=== PATIENT | female | born 1945 | race Caucasian/White ===

== ENCOUNTER 2017-07-29 13:24 | Inpatient (IN) | payer OTHER ==
[~2017-07-29] VITALS: Ht 162.6 cm; Wt 126.0 kg
[2017-07-29 15:36] LABS: BASOPHIL (%) 0.3 % (0-1); EOSINOPHIL (%) 0.8 % (0-5); EOSINOPHIL COUNT 0.1 K/uL (0-0.3); HEMATOCRIT 33.6 % (36.0-46.0); HEMOGLOBIN 11.6 G/DL (11.9-15.5); IMMATURE GRANULOCYTE (%) 0.5 % (0.0-0.7); LYMPHOCYTE (%) 5.1 % (15-42); LYMPHOCYTE COUNT 0.7 K/uL (1.0-2.8); MCH 34.3 PG (29.0-34.0); MCHC 34.5 G/DL (30.0-36.0); MCV 99.4 FL (83-99); MONOCYTE (%) 10.4 % (3-12); MONOCYTE COUNT 1.4 K/uL (0-0.8); NEUTROPHIL (%) 82.9 % (45-76); NEUTROPHIL COUNT 11.2 K/uL (1.8-6.4); PLATELET COUNT 339 K/uL (156-360); RBC DIS.WIDTH-CV 13.7 % (11.8-14.6); RED BLOOD COUNT 3.38 M/uL (3.80-5.20); WHITE BLOOD COUNT 13.6 K/uL (4.1-10.2)
[2017-07-29 15:46] LABS: CHLORIDE 106 mEq/L (99-109); POTASSIUM 4.4 mEq/L (3.7-5.4); SODIUM 139 mEq/L (136-147)
[2017-07-29 15:47] LABS: GLUCOSE 154 mg/dL (70-99)
[2017-07-29 15:50] LABS: ERTH.SED.RATE 58 MM/HR (0-30)
[2017-07-29 15:51] LABS: CREATININE 1.2 mg/dL (0.6-1.3); GFR ESTIMATE (CALCULATED) 47 mL/min/
[2017-07-29 15:52] LABS: UREA NITROGEN (BUN) 36 mg/dL (9-23)
[2017-07-29] MEDS ORDERED: CLEOCIN300 MG PO (17:36)
[2017-07-29 18:03] LABS: C-REACTIVE PROTEIN 188.3 MG/L (0-10)
[2017-07-29] MEDS ORDERED: ATENOLOL50 MG PO (19:00)
[2017-07-29] MEDS ORDERED: DICLOFENAC SODI50 MG PO (19:01)
[2017-07-29] MEDS ORDERED: LISINOPRIL20 MG PO (19:01)
[2017-07-29] MEDS ORDERED: METFORMIN HCL500 MG PO (19:02)
[2017-07-29] MEDS ORDERED: LOVASTATIN20 MG PO (19:02)
[2017-07-29] MEDS ORDERED: ATENOLOL100 MG PO (19:02)
[2017-07-29] MEDS ORDERED: CALCIUM 600 +1 EAC1 PO (19:05)
[2017-07-29] MEDS ORDERED: LASIX40 MG PO (19:07)
[2017-07-29 21:08] LABS: BASE EXCESS 0.5 mEq/L (-3 to +3); BICARBONATE 24.5 mEq/L (22-26); CARBOXY HGB 1.7 % (0-5); METHEMOGLOBIN 0.9 % (0-1.5); PCO2 36 mm Hg (35-45); PO2 79 mm Hg (80-100); pH 7.44 (7.35-7.45)
[2017-07-29 21:09] LABS: COMMENTS - BLOOD GASES A+C+; FI02 21 %; SITE RR
[2017-07-29 21:58] VITALS: BP 124/59
[2017-07-30 06:13] LABS: BASOPHIL (%) 0.6 % (0-1); BASOPHIL COUNT 0.1 K/uL (0-0.1); EOSINOPHIL (%) 4.1 % (0-5); EOSINOPHIL COUNT 0.3 K/uL (0-0.3); HEMATOCRIT 31.3 % (36.0-46.0); HEMOGLOBIN 10.2 G/DL (11.9-15.5); IMMATURE GRANULOCYTE (%) 0.6 % (0.0-0.7); LYMPHOCYTE (%) 14.8 % (15-42); LYMPHOCYTE COUNT 1.2 K/uL (1.0-2.8); MCHC 32.6 G/DL (30.0-36.0); MCV 101.3 FL (83-99); MONOCYTE (%) 11.6 % (3-12); NEUTROPHIL (%) 68.3 % (45-76); NEUTROPHIL COUNT 5.7 K/uL (1.8-6.4); PLATELET COUNT 282 K/uL (156-360); RBC DIS.WIDTH-CV 13.7 % (11.8-14.6); RBC DIS.WIDTH-SD 51.4 % (39-53); RED BLOOD COUNT 3.09 M/uL (3.80-5.20); WHITE BLOOD COUNT 8.4 K/uL (4.1-10.2)
[2017-07-30 06:34] LABS: CHLORIDE 108 MEQ/L (99-109); GFR ESTIMATE (CALCULATED) 58 mL/min/; POTASSIUM 4.3 MEQ/L (3.7-5.4); SODIUM 142 MEQ/L (136-147); UREA NITROGEN (BUN) 30 mg/dL (9-23)
[2017-07-30 06:47] LABS: GLUCOSE 94 mg/dL (70-99)
[2017-07-30 07:21] VITALS: BP 130/63
[2017-07-31] VITALS: BP 138/63
[2017-07-31 06:10] LABS: HEMATOCRIT 27.6 % (36.0-46.0); HEMOGLOBIN 9.2 G/DL (11.9-15.5); MCHC 33.3 G/DL (30.0-36.0); MCV 98.9 FL (83-99); PLATELET COUNT 288 K/uL (156-360); RBC DIS.WIDTH-CV 13.4 % (11.8-14.6); RBC DIS.WIDTH-SD 49.1 % (39-53); RED BLOOD COUNT 2.79 M/uL (3.80-5.20)
[2017-07-31 06:34] LABS: CHLORIDE 109 MEQ/L (99-109); CREATININE 1.2 MG/DL (0.6-1.3); GFR ESTIMATE (CALCULATED) 47 mL/min/; GLUCOSE 107 mg/dL (70-99); POTASSIUM 4.4 MEQ/L (3.7-5.4); SODIUM 141 MEQ/L (136-147); UREA NITROGEN (BUN) 30 mg/dL (9-23)
[2017-07-31 07:06] VITALS: BP 118/62
[2017-07-31 15:00] VITALS: BP 130/59
[2017-08-01] VITALS: BP 118/56
[2017-08-01 06:05] LABS: BASOPHIL COUNT 0.1 K/uL (0-0.1); EOSINOPHIL (%) 6.7 % (0-5); EOSINOPHIL COUNT 0.4 K/uL (0-0.3); HEMATOCRIT 28.8 % (36.0-46.0); HEMOGLOBIN 9.8 G/DL (11.9-15.5); IMMATURE GRANULOCYTE (%) 1.1 % (0.0-0.7); LYMPHOCYTE (%) 18.1 % (15-42); LYMPHOCYTE COUNT 1.1 K/uL (1.0-2.8); MCH 34.1 PG (29.0-34.0); MCV 100.3 FL (83-99); MONOCYTE (%) 10.5 % (3-12); MONOCYTE COUNT 0.7 K/uL (0-0.8); NEUTROPHIL (%) 62.6 % (45-76); NEUTROPHIL COUNT 3.9 K/uL (1.8-6.4); PLATELET COUNT 286 K/uL (156-360); RBC DIS.WIDTH-CV 13.6 % (11.8-14.6); RBC DIS.WIDTH-SD 50.6 % (39-53); RED BLOOD COUNT 2.87 M/uL (3.80-5.20); WHITE BLOOD COUNT 6.3 K/uL (4.1-10.2)
[2017-08-01 06:45] LABS: ALBUMIN 2.4 G/DL (3.2-4.8); ALKALINE PHOSPHATASE 120 IU/L (3-129); ALT (GPT) 18 IU/L (3-49); AST (GOT) 21 IU/L (2-34); CHLORIDE 109 MEQ/L (99-109); CREATININE 1.3 MG/DL (0.6-1.3); GFR ESTIMATE (CALCULATED) 43 mL/min/; GLUCOSE 113 mg/dL (70-99); POTASSIUM 4.2 MEQ/L (3.7-5.4); SODIUM 140 MEQ/L (136-147); TOTAL BILIRUBIN 0.5 MG/DL (0.0-1.0); TOTAL PROTEIN 4.9 G/DL (6.4-8.3); UREA NITROGEN (BUN) 30 mg/dL (9-23)
[2017-08-01 08:14] VITALS: BP 132/63
[2017-08-01 16:55] VITALS: BP 140/78
[2017-08-01 23:02] VITALS: BP 125/61
[2017-08-02 06:40] LABS: BASOPHIL (%) 0.9 % (0-1); BASOPHIL COUNT 0.1 K/uL (0-0.1); EOSINOPHIL (%) 7.6 % (0-5); EOSINOPHIL COUNT 0.5 K/uL (0-0.3); IMM.RETIC FRACTION 21.5 % (3-19); IMMATURE GRANULOCYTE (%) 1.8 % (0.0-0.7); LYMPHOCYTE (%) 17.7 % (15-42); LYMPHOCYTE COUNT 1.2 K/uL (1.0-2.8); MCH 33.1 PG (29.0-34.0); MCHC 33.3 G/DL (30.0-36.0); MCV 99.3 FL (83-99); MONOCYTE (%) 8.9 % (3-12); MONOCYTE COUNT 0.6 K/uL (0-0.8); NEUTROPHIL (%) 63.1 % (45-76); NEUTROPHIL COUNT 4.2 K/uL (1.8-6.4); PLATELET COUNT 296 K/uL (156-360); RBC DIS.WIDTH-CV 13.3 % (11.8-14.6); RBC DIS.WIDTH-SD 48.4 % (39-53); RED BLOOD COUNT 3.02 M/uL (3.80-5.20); RETIC HGB EQUIVALENT 35.1 (28-36); RETICULOCYTE COUNT 2.4 % (0.5-1.8); WHITE BLOOD COUNT 6.7 K/uL (4.1-10.2)
[2017-08-02 06:59] LABS: CHLORIDE 109 MEQ/L (99-109); GFR ESTIMATE (CALCULATED) 58 mL/min/; GLUCOSE 118 mg/dL (70-99); IRON 57 MCG/DL (35-150); POTASSIUM 4.3 MEQ/L (3.7-5.4); SODIUM 141 MEQ/L (136-147); TRANSFERRIN (TIBC) 155.6 mg/dL (215-380); TRANSFERRIN SATUR. 37 % (20-55); UREA NITROGEN (BUN) 26 mg/dL (9-23)
[2017-08-02 07:03] VITALS: BP 137/63
[2017-08-02 08:08] LABS: FERRITIN 393 NG/ML (10-291)
[2017-08-02 08:13] LABS: FOLIC ACID (FOLATE) 8.4 NG/ML (5.0-22.0)
[2017-08-02 11:13] VITALS: BP 128/62
[2017-08-02 15:00] VITALS: BP 138/58
[2017-08-02 23:51] VITALS: BP 111/65
[2017-08-03 07:45] VITALS: BP 146/69
[2017-08-03 11:13] VITALS: BP 133/67
[2017-08-03] MEDS ORDERED: ANCEF,KEFZOL1 GM IV (13:18)
[2017-08-03] MEDS ORDERED: POVIDONE-IODINE30 GM TP (13:20)
[2017-08-03] MEDS ORDERED: SANTYL30 GM TP (13:21)
[2017-08-03] MEDS ORDERED: DESENEX85 GM TP (13:21)
== END 2017-08-03 15:53 | DRG 540 ==
LOC: EME 13:24 → EDOF 20:02 → ENRESERV 20:03 → 5EAST 21:38
PROVIDERS: Emergency Medicine; Hospitalist; Internal Medicine
DX: M86.9 Osteomyelitis, unspecified (principal); L03.116 Cellulitis of left lower limb; L03.115 Cellulitis of right lower limb; Z68.42 Body mass index [BMI] 45.0-49.9, adult; L89.610 Pressure ulcer of right heel, unstageable; L89.620 Pressure ulcer of left heel, unstageable; I89.0 Lymphedema, not elsewhere classified; M85.872 Other specified disorders of bone density and structure, left ankle and foot; E66.01 Morbid (severe) obesity due to excess calories; E11.51 Type 2 diabetes mellitus with diabetic peripheral angiopathy without gangrene; E11.42 Type 2 diabetes mellitus with diabetic polyneuropathy; S92.345A Nondisplaced fracture of fourth metatarsal bone, left foot, initial encounter for closed fracture; S92.355A Nondisplaced fracture of fifth metatarsal bone, left foot, initial encounter for closed fracture; W18.30XA Fall on same level, unspecified, initial encounter; I10 Essential (primary) hypertension; D64.9 Anemia, unspecified; R60.9 Edema, unspecified; Z60.2 Problems related to living alone; B95.1 Streptococcus, group B, as the cause of diseases classified elsewhere; B95.61 Methicillin susceptible Staphylococcus aureus infection as the cause of diseases classified elsewhere; Z88.2 Allergy status to sulfonamides; Z79.84 Long term (current) use of oral hypoglycemic drugs; Y92.009 Unspecified place in unspecified non-institutional (private) residence as the place of occurrence of the external cause; Z86.718 Personal history of other venous thrombosis and embolism; Z17.0 Estrogen receptor positive status [ER+]; Z85.3 Personal history of malignant neoplasm of breast; Z91.81 History of falling; Z90.49 Acquired absence of other specified parts of digestive tract; Z82.49 Family history of ischemic heart disease and other diseases of the circulatory system; Z82.0 Family history of epilepsy and other diseases of the nervous system
CPT/HCPCS: 36600; 73502; 73630; 73720; 76937; 80048; 80053; 80202; 82607; 82728; 82746; 82803; 82948; 83540; 84466; 85025; 85027; 85046; 85652; 86140; 87070; 87075; 87077; 87147; 87186; 87205; 87641; 93925; 93970; 97530 GP; 99281; 99284; A6260; G0378; J0690; J1650; J1815; J2543; J3370; J7050

== ENCOUNTER 2017-09-23 10:35 | Inpatient (IN) | payer OTHER ==
[~2017-09-23] VITALS: Ht 165.1 cm; Wt 126.0 kg
[~2017-09-23 10:35] MED LIST: ANCEF,KEFZOL1 GM IV; ATENOLOL100 MG PO; ATENOLOL50 MG PO; CALCIUM 600 +1 EAC1 PO; CLEOCIN300 MG PO; DESENEX85 GM TP; DICLOFENAC SODI50 MG PO; LASIX40 MG PO; LISINOPRIL20 MG PO; LOVASTATIN20 MG PO; METFORMIN HCL500 MG PO; POVIDONE-IODINE30 GM TP; SANTYL30 GM TP
[2017-09-23 11:43] LABS: BASOPHIL (%) 0.3 % (0-1); EOSINOPHIL (%) 0.4 % (0-5); EOSINOPHIL COUNT 0.1 K/uL (0-0.3); HEMATOCRIT 37.9 % (36.0-46.0); HEMOGLOBIN 12.3 G/DL (11.9-15.5); IMMATURE GRANULOCYTE (%) 1.2 % (0.0-0.7); LYMPHOCYTE (%) 9.6 % (15-42); LYMPHOCYTE COUNT 1.3 K/uL (1.0-2.8); MCH 33.9 PG (29.0-34.0); MCHC 32.5 G/DL (30.0-36.0); MCV 104.4 FL (83-99); MONOCYTE COUNT 0.8 K/uL (0-0.8); NEUTROPHIL (%) 82.5 % (45-76); NEUTROPHIL COUNT 11.4 K/uL (1.8-6.4); RBC DIS.WIDTH-CV 13.2 % (11.8-14.6); RBC DIS.WIDTH-SD 50.4 % (39-53); RED BLOOD COUNT 3.63 M/uL (3.80-5.20); WHITE BLOOD COUNT 13.8 K/uL (4.1-10.2)
[2017-09-23 11:54] LABS: CHLORIDE 102 mEq/L (99-109); SODIUM 135 mEq/L (136-147)
[2017-09-23 11:56] LABS: GLUCOSE 210 mg/dL (70-99)
[2017-09-23 11:59] LABS: CREATININE 2.9 mg/dL (0.6-1.3); GFR ESTIMATE (CALCULATED) 17 mL/min/
[2017-09-23 12:00] LABS: POTASSIUM 6.8 mEq/L (3.7-5.4); UREA NITROGEN (BUN) 55 mg/dL (9-23)
[2017-09-23 12:18] LABS: PLATELET COUNT 159 K/uL (156-360)
[2017-09-23 14:05] LABS: POTASSIUM 5.2 mEq/L (3.7-5.4)
[2017-09-23 15:23] LABS: BASE EXCESS -6.8 mEq/L (-3 to +3); BICARBONATE 16.7 mEq/L (22-26); CARBOXY HGB 7.2 % (0-5); COMMENTS - BLOOD GASES +C; FI02 21 %; METHEMOGLOBIN 1.6 % (0-1.5); PCO2 27 mm Hg (35-45); PO2 108 mm Hg (80-100); SITE RR +A
[2017-09-23 15:24] LABS: TOTAL RESP RATE 32 resp/min
[2017-09-23 15:56] LABS: ALBUMIN 3.9 g/dL (3.2-4.8); CHLORIDE 105 mEq/L (99-109); POTASSIUM 4.8 mEq/L (3.7-5.4); SODIUM 139 mEq/L (136-147)
[2017-09-23 15:59] LABS: GLUCOSE 165 mg/dL (70-99); TOTAL PROTEIN 6.8 g/dL (6.4-8.3)
[2017-09-23 16:01] LABS: TOTAL BILIRUBIN 0.7 mg/dL (0.0-1.0)
[2017-09-23 16:02] LABS: ALKALINE PHOSPHATASE 133 IU/L (3-129); CREATININE 2.7 mg/dL (0.6-1.3); GFR ESTIMATE (CALCULATED) 19 mL/min/
[2017-09-23 16:03] LABS: UREA NITROGEN (BUN) 56 mg/dL (9-23)
[2017-09-23 16:04] LABS: AST (GOT) 21 IU/L (2-34)
[2017-09-23 16:05] LABS: ALT (GPT) 11 IU/L (3-49)
[2017-09-23 16:11] LABS: TROP-I INTERPRETATION NEGATIVE; TROPONIN-I < 0.01 ng/mL (0.0-0.30)
[2017-09-23 18:01] VITALS: BP 83/53
[2017-09-23 20:13] VITALS: BP 104/59
[2017-09-23 22:41] LABS: INTER. NORMALIZED RATIO 1.3
[2017-09-23 22:43] LABS: PTT 25.8 SEC (25-37)
[2017-09-23 23:20] VITALS: BP 112/56
[2017-09-24 03:47] VITALS: BP 96/52
[2017-09-24 05:34] LABS: CHLORIDE 102 MEQ/L (99-109); POTASSIUM 5.2 MEQ/L (3.7-5.4); SODIUM 135 MEQ/L (136-147)
[2017-09-24 05:39] LABS: CREATININE 3.1 MG/DL (0.6-1.3); GFR ESTIMATE (CALCULATED) 16 mL/min/; GLUCOSE 178 mg/dL (70-99); UREA NITROGEN (BUN) 62 mg/dL (9-23)
[2017-09-24 07:07] LABS: HEMATOCRIT 40.1 % (36.0-46.0); MCH 33.4 PG (29.0-34.0); MCHC 32.4 G/DL (30.0-36.0); MCV 103.1 FL (83-99); PLATELET COUNT 161 K/uL (156-360); RBC DIS.WIDTH-CV 13.2 % (11.8-14.6); RBC DIS.WIDTH-SD 50.6 % (39-53); RED BLOOD COUNT 3.89 M/uL (3.80-5.20); WHITE BLOOD COUNT 16.5 K/uL (4.1-10.2)
[2017-09-24 07:47] VITALS: BP 103/55
[2017-09-24 08:56] LABS: BASE EXCESS -4.7 mEq/L (-3 to +3); BICARBONATE 18.3 mEq/L (22-26); COMMENTS - BLOOD GASES A+C+; DEVICE RA; METHEMOGLOBIN 1.4 % (0-1.5); PCO2 27 mm Hg (35-45); PO2 109 mm Hg (80-100); SITE RR; TOTAL RESP RATE 15 resp/min; pH 7.44 (7.35-7.45)
[2017-09-24 10:20] LABS: HEMOGLOBIN A1c (GLYCOHEMOGLOB) 6.2 % (Below 5.7)
[2017-09-24 12:30] VITALS: BP 85/51
[2017-09-24 14:19] LABS: CHLORIDE 106 MEQ/L (99-109); CREATININE 3.2 MG/DL (0.6-1.3); GFR ESTIMATE (CALCULATED) 15 mL/min/; GLUCOSE 147 mg/dL (70-99); POTASSIUM 5.4 MEQ/L (3.7-5.4); SODIUM 137 MEQ/L (136-147); UREA NITROGEN (BUN) 66 mg/dL (9-23)
[2017-09-24 16:00] VITALS: BP 114/53
[2017-09-24 19:59] LABS: CHLORIDE 107 MEQ/L (99-109); POTASSIUM 4.6 MEQ/L (3.7-5.4); SODIUM 137 MEQ/L (136-147)
[2017-09-24 20:05] LABS: CREATININE 3.1 MG/DL (0.6-1.3); GFR ESTIMATE (CALCULATED) 16 mL/min/; GLUCOSE 143 mg/dL (70-99); UREA NITROGEN (BUN) 68 mg/dL (9-23)
[2017-09-24 20:55] VITALS: BP 97/55
[2017-09-24 23:28] VITALS: BP 96/54
[2017-09-25 03:57] VITALS: BP 100/51
[2017-09-25 05:41] LABS: BASOPHIL (%) 0.6 % (0-1); BASOPHIL COUNT 0.1 K/uL (0-0.1); EOSINOPHIL (%) 2.1 % (0-5); EOSINOPHIL COUNT 0.3 K/uL (0-0.3); HEMOGLOBIN 9.4 G/DL (11.9-15.5); IMMATURE GRANULOCYTE (%) 0.6 % (0.0-0.7); LYMPHOCYTE (%) 11.2 % (15-42); LYMPHOCYTE COUNT 1.7 K/uL (1.0-2.8); MCH 33.5 PG (29.0-34.0); MCHC 32.4 G/DL (30.0-36.0); MCV 103.2 FL (83-99); MONOCYTE (%) 7.6 % (3-12); MONOCYTE COUNT 1.1 K/uL (0-0.8); NEUTROPHIL (%) 77.9 % (45-76); NEUTROPHIL COUNT 11.4 K/uL (1.8-6.4); PLATELET COUNT 139 K/uL (156-360); RBC DIS.WIDTH-CV 13.3 % (11.8-14.6); RBC DIS.WIDTH-SD 50.7 % (39-53); RED BLOOD COUNT 2.81 M/uL (3.80-5.20); WHITE BLOOD COUNT 14.7 K/uL (4.1-10.2)
[2017-09-25 06:06] LABS: CHLORIDE 109 MEQ/L (99-109); CREATININE 3.4 MG/DL (0.6-1.3); GFR ESTIMATE (CALCULATED) 14 mL/min/; GLUCOSE 109 mg/dL (70-99); MAGNESIUM 1.5 mg/dl (1.3-2.7); PHOSPHORUS 3.5 mg/dL (2.5-4.9); POTASSIUM 4.1 MEQ/L (3.7-5.4); SODIUM 140 MEQ/L (136-147); UREA NITROGEN (BUN) 78 mg/dL (9-23)
[2017-09-25 09:00] VITALS: BP 86/42; BP 96/47
[2017-09-25 11:57] VITALS: BP 94/44
[2017-09-25 15:24] LABS: HEMATOCRIT 29.5 % (36.0-46.0); HEMOGLOBIN 9.5 G/DL (11.9-15.5); MCHC 32.2 G/DL (30.0-36.0); MCV 102.4 FL (83-99); PLATELET COUNT 172 K/uL (156-360); RBC DIS.WIDTH-CV 13.2 % (11.8-14.6); RBC DIS.WIDTH-SD 49.9 % (39-53); RED BLOOD COUNT 2.88 M/uL (3.80-5.20); WHITE BLOOD COUNT 14.5 K/uL (4.1-10.2)
[2017-09-25 17:38] VITALS: BP 82/37
[2017-09-25 17:43] LABS: STOOL OCCULT BLD 1ST SPECIMEN POSITIVE
[2017-09-25 18:00] LABS: CHLORIDE 109 MEQ/L (99-109); CREATININE 2.6 MG/DL (0.6-1.3); GFR ESTIMATE (CALCULATED) 19 mL/min/; GLUCOSE 139 mg/dL (70-99); POTASSIUM 4.1 MEQ/L (3.7-5.4); SODIUM 140 MEQ/L (136-147); UREA NITROGEN (BUN) 67 mg/dL (9-23)
[2017-09-25 18:55] LABS: HEMATOCRIT 30.4 % (36.0-46.0); HEMOGLOBIN 9.9 G/DL (11.9-15.5); MCH 33.4 PG (29.0-34.0); MCHC 32.6 G/DL (30.0-36.0); MCV 102.7 FL (83-99); PLATELET COUNT 186 K/uL (156-360); RBC DIS.WIDTH-CV 13.2 % (11.8-14.6); RBC DIS.WIDTH-SD 49.5 % (39-53); RED BLOOD COUNT 2.96 M/uL (3.80-5.20); WHITE BLOOD COUNT 14.5 K/uL (4.1-10.2)
[2017-09-25 19:30] VITALS: BP 98/53
[2017-09-25 20:33] LABS: STOOL OCCULT BLD 1ST SPECIMEN POSITIVE
[2017-09-25 23:14] VITALS: BP 82/46
[2017-09-26 03:00] VITALS: BP 89/51
[2017-09-26 05:09] LABS: BASOPHIL (%) 0.6 % (0-1); BASOPHIL COUNT 0.1 K/uL (0-0.1); EOSINOPHIL (%) 3.6 % (0-5); EOSINOPHIL COUNT 0.4 K/uL (0-0.3); HEMOGLOBIN 8.9 G/DL (11.9-15.5); IMMATURE GRANULOCYTE (%) 0.7 % (0.0-0.7); LYMPHOCYTE (%) 14.7 % (15-42); LYMPHOCYTE COUNT 1.6 K/uL (1.0-2.8); MCH 33.3 PG (29.0-34.0); MCV 101.1 FL (83-99); MONOCYTE (%) 6.8 % (3-12); MONOCYTE COUNT 0.7 K/uL (0-0.8); NEUTROPHIL (%) 73.6 % (45-76); PLATELET COUNT 139 K/uL (156-360); RBC DIS.WIDTH-CV 13.2 % (11.8-14.6); RBC DIS.WIDTH-SD 49.1 % (39-53); RED BLOOD COUNT 2.67 M/uL (3.80-5.20); WHITE BLOOD COUNT 10.9 K/uL (4.1-10.2)
[2017-09-26 05:33] LABS: CHLORIDE 109 MEQ/L (99-109); CREATININE 2.4 MG/DL (0.6-1.3); GFR ESTIMATE (CALCULATED) 21 mL/min/; GLUCOSE 114 mg/dL (70-99); POTASSIUM 4.2 MEQ/L (3.7-5.4); SODIUM 138 MEQ/L (136-147); UREA NITROGEN (BUN) 61 mg/dL (9-23)
[2017-09-26 09:00] VITALS: BP 101/49
[2017-09-26 11:45] VITALS: BP 98/53
[2017-09-26 16:16] VITALS: BP 93/55
[2017-09-26 19:30] VITALS: BP 96/54
[2017-09-26 23:58] VITALS: BP 93/50
[2017-09-27] VITALS (7 sets, daily range): BP systolic 93–128; BP diastolic 53–63
[2017-09-27 05:37] LABS: BASOPHIL (%) 0.5 % (0-1); BASOPHIL COUNT 0.1 K/uL (0-0.1); EOSINOPHIL (%) 4.6 % (0-5); EOSINOPHIL COUNT 0.4 K/uL (0-0.3); HEMATOCRIT 25.5 % (36.0-46.0); HEMOGLOBIN 8.6 G/DL (11.9-15.5); IMMATURE GRANULOCYTE (%) 0.9 % (0.0-0.7); LYMPHOCYTE (%) 16.2 % (15-42); LYMPHOCYTE COUNT 1.5 K/uL (1.0-2.8); MCH 33.9 PG (29.0-34.0); MCHC 33.7 G/DL (30.0-36.0); MCV 100.4 FL (83-99); MONOCYTE COUNT 0.7 K/uL (0-0.8); NEUTROPHIL (%) 69.8 % (45-76); NEUTROPHIL COUNT 6.4 K/uL (1.8-6.4); PLATELET COUNT 116 K/uL (156-360); RBC DIS.WIDTH-CV 13.2 % (11.8-14.6); RED BLOOD COUNT 2.54 M/uL (3.80-5.20); WHITE BLOOD COUNT 9.2 K/uL (4.1-10.2)
[2017-09-27 05:48] LABS: CHLORIDE 108 MEQ/L (99-109); GFR ESTIMATE (CALCULATED) 32 mL/min/; GLUCOSE 127 mg/dL (70-99); IRON 43 MCG/DL (35-150); MAGNESIUM 1.4 mg/dl (1.3-2.7); PHOSPHORUS 2.4 mg/dL (2.5-4.9); SODIUM 139 MEQ/L (136-147); UREA NITROGEN (BUN) 48 mg/dL (9-23)
[2017-09-27 05:51] LABS: CREATININE 1.7 MG/DL (0.6-1.3)
[2017-09-28 03:40] VITALS: BP 121/62
[2017-09-28 05:48] LABS: BASOPHIL (%) 0.3 % (0-1); EOSINOPHIL (%) 4.7 % (0-5); EOSINOPHIL COUNT 0.4 K/uL (0-0.3); HEMATOCRIT 25.6 % (36.0-46.0); HEMOGLOBIN 8.6 G/DL (11.9-15.5); IMMATURE GRANULOCYTE (%) 0.9 % (0.0-0.7); LYMPHOCYTE (%) 14.6 % (15-42); LYMPHOCYTE COUNT 1.3 K/uL (1.0-2.8); MCH 33.6 PG (29.0-34.0); MCHC 33.6 G/DL (30.0-36.0); MONOCYTE (%) 8.6 % (3-12); MONOCYTE COUNT 0.8 K/uL (0-0.8); NEUTROPHIL (%) 70.9 % (45-76); NEUTROPHIL COUNT 6.2 K/uL (1.8-6.4); PLATELET COUNT 120 K/uL (156-360); RBC DIS.WIDTH-CV 13.2 % (11.8-14.6); RBC DIS.WIDTH-SD 47.6 % (39-53); RED BLOOD COUNT 2.56 M/uL (3.80-5.20); WHITE BLOOD COUNT 8.7 K/uL (4.1-10.2)
[2017-09-28 06:20] LABS: CHLORIDE 108 MEQ/L (99-109); CREATININE 1.4 MG/DL (0.6-1.3); GFR ESTIMATE (CALCULATED) 40 mL/min/; GLUCOSE 123 mg/dL (70-99); POTASSIUM 3.8 MEQ/L (3.7-5.4); SODIUM 139 MEQ/L (136-147); UREA NITROGEN (BUN) 40 mg/dL (9-23)
[2017-09-28 07:43] VITALS: BP 106/55
[2017-09-28 11:23] VITALS: BP 114/74
[2017-09-28 16:13] VITALS: BP 105/57
[2017-09-28 19:42] VITALS: BP 103/56
[2017-09-28 23:29] VITALS: BP 111/60
[2017-09-29 00:28] VITALS: BP 120/65; BP 121/74
[2017-09-29 03:47] VITALS: BP 116/60
[2017-09-29 06:06] LABS: HEMATOCRIT 24.4 % (36.0-46.0); MCH 32.9 PG (29.0-34.0); MCHC 32.8 G/DL (30.0-36.0); MCV 100.4 FL (83-99); PLATELET COUNT 141 K/uL (156-360); RBC DIS.WIDTH-CV 13.3 % (11.8-14.6); RBC DIS.WIDTH-SD 48.7 % (39-53); RED BLOOD COUNT 2.43 M/uL (3.80-5.20); WHITE BLOOD COUNT 8.9 K/uL (4.1-10.2)
[2017-09-29 06:26] LABS: CHLORIDE 109 MEQ/L (99-109); CREATININE 1.2 MG/DL (0.6-1.3); GFR ESTIMATE (CALCULATED) 47 mL/min/; GLUCOSE 123 mg/dL (70-99); POTASSIUM 3.8 MEQ/L (3.7-5.4); SODIUM 139 MEQ/L (136-147); UREA NITROGEN (BUN) 34 mg/dL (9-23)
[2017-09-29 07:38] VITALS: BP 118/54
[2017-09-29 10:03] LABS: STOOL OCCULT BLD 1ST SPECIMEN POSITIVE
[2017-09-29] MEDS ORDERED: ANTIVERT12.5 MG PO (10:13)
[2017-09-29] MEDS ORDERED: PANTOPRAZOLE SO40 MG PO (10:14)
[2017-09-29 10:40] VITALS: BP 126/60
== END 2017-09-29 15:16 | DRG 683 ==
LOC: EME 10:35 → 4EAST 14:16 → EDOF 14:16 → ENRESERV 14:25 → 4EAST 17:36 → ENRESERV 09-27 10:31 → 2EASTP 09-27 13:55 → ENRESERV 09-27 15:25 → 2EAST 09-27 18:25 → ENPENDDIS 09-29 14:40 → 2EAST 09-29 15:16
PROVIDERS: Emergency Medicine; Internal Medicine; Internal Medicine Nephrology; Thoracic Surgery (Cardiothoracic Vascular Surgery)
DX: N17.0 Acute kidney failure with tubular necrosis (principal); K52.9 Noninfective gastroenteritis and colitis, unspecified; E86.0 Dehydration; E87.2 Acidosis; E66.01 Morbid (severe) obesity due to excess calories; I82.522 Chronic embolism and thrombosis of left iliac vein; I82.532 Chronic embolism and thrombosis of left popliteal vein; E87.5 Hyperkalemia; I10 Essential (primary) hypertension; E11.9 Type 2 diabetes mellitus without complications; R29.6 Repeated falls; R33.9 Retention of urine, unspecified; Z68.41 Body mass index [BMI] 40.0-44.9, adult; I89.0 Lymphedema, not elsewhere classified; D64.9 Anemia, unspecified; I95.9 Hypotension, unspecified; E87.1 Hypo-osmolality and hyponatremia; L97.429 Non-pressure chronic ulcer of left heel and midfoot with unspecified severity; I87.2 Venous insufficiency (chronic) (peripheral); K29.70 Gastritis, unspecified, without bleeding; Z79.84 Long term (current) use of oral hypoglycemic drugs; Z85.3 Personal history of malignant neoplasm of breast
CPT/HCPCS: 36600; 70450; 71045; 74176; 78582; 80048; 80048 91; 80053; 81003; 82271; 82272; 82533 91; 82803; 82948; 83036; 83540; 83605; 83735; 84100; 84484; 84999; 85025; 85027; 85379; 85610; 85730; 87040; 93005; 93306; 93970; 97530 GP; 99281; 99285; A9540; A9567; C1753; C9113; J0744; J1644; J2405; J2543; J2765; J3010; J7030; J7050; J7070; S0028; S0030

== ENCOUNTER 2017-10-22 07:54 | Emergency (ER) | payer OTHER ==
[~2017-10-22] VITALS: Ht 162.6 cm; Wt 152.9 kg
[~2017-10-22 07:54] MED LIST changes: +ANTIVERT12.5 MG PO; +PANTOPRAZOLE SO40 MG PO
[2017-10-22 08:50] LABS: APPEARANCE CLEAR ((CLEAR)); BILIRUBIN NEGATIVE; BLOOD NEGATIVE; COLOR YELLOW ((YELLOW)); GLUCOSE (STRIP) NEGATIVE; KETONES NEGATIVE; LEUKOCYTES NEGATIVE; NITRITE NEGATIVE; PROTEIN (STRIP) NEGATIVE; UCUL ADDED? NO; UROBILINOGEN 0.2 MG/DL (0.2-1.0)
[2017-10-22 09:02] LABS: HEMATOCRIT 32.2 % (36.0-46.0); HEMOGLOBIN 10.5 G/DL (11.9-15.5); MCH 32.7 PG (29.0-34.0); MCHC 32.6 G/DL (30.0-36.0); MCV 100.3 FL (83-99); PLATELET COUNT 306 K/uL (156-360); RBC DIS.WIDTH-CV 14.4 % (11.8-14.6); RBC DIS.WIDTH-SD 52.5 % (39-53); RED BLOOD COUNT 3.21 M/uL (3.80-5.20); WHITE BLOOD COUNT 9.6 K/uL (4.1-10.2)
[2017-10-22 09:07] LABS: CHLORIDE 106 mEq/L (99-109); POTASSIUM 3.2 mEq/L (3.7-5.4)
[2017-10-22 09:08] LABS: SODIUM 141 mEq/L (136-147)
[2017-10-22 09:09] LABS: GLUCOSE 126 mg/dL (70-99)
[2017-10-22 09:13] LABS: CREATININE 0.8 mg/dL (0.6-1.3); GFR ESTIMATE (CALCULATED) > 59 mL/min/
[2017-10-22 09:14] LABS: UREA NITROGEN (BUN) 14 mg/dL (9-23)
[2017-10-22] MEDS ORDERED: TENORMIN50 MG PO (11:08)
[2017-10-22] MEDS ORDERED: TYLENOL REGULA325 MG PO (11:08)
[2017-10-22] MEDS ORDERED: LISINOPRIL20 MG PO (11:08)
[2017-10-22] MEDS ORDERED: CALCIUM 500-VI1 EAC1 PO (11:11)
[2017-10-22 11:36] LABS: INTER. NORMALIZED RATIO 1.3
[2017-10-22 11:43] LABS: PTT 25.9 SEC (25-37)
[2017-10-22 18:35] VITALS: BP 155/85
== END 2017-10-22 22:00 | disposition short-term general hospital (02) ==
LOC: EME 07:54 → EDOF 12:02 → ENRESERV 12:03 → CANRESERV 12:22 → ENRESERV 12:22 → CANRESERV 16:10 → EDOF 22:00 → EME 22:00
PROVIDERS: Nurse Practitioner Family
DX: I82.423 Acute embolism and thrombosis of iliac vein, bilateral (principal); I82.433 Acute embolism and thrombosis of popliteal vein, bilateral; I89.0 Lymphedema, not elsewhere classified; E87.6 Hypokalemia; E11.9 Type 2 diabetes mellitus without complications; Z79.84 Long term (current) use of oral hypoglycemic drugs; E78.5 Hyperlipidemia, unspecified; I10 Essential (primary) hypertension; E66.01 Morbid (severe) obesity due to excess calories; Z68.43 Body mass index [BMI] 50.0-59.9, adult; Z85.3 Personal history of malignant neoplasm of breast; Z90.13 Acquired absence of bilateral breasts and nipples; Z15.01 Genetic susceptibility to malignant neoplasm of breast; Z88.2 Allergy status to sulfonamides; Z86.718 Personal history of other venous thrombosis and embolism
CPT/HCPCS: 71045; 80048; 81003; 85027; 85610; 85730; 93970; 99281; 99285